=== PATIENT | male | born 1995 | race Two or more races ===

== ENCOUNTER 2017-04-19 17:39 | Emergency (ER) | payer OTHER ==
[2017-04-19] MEDS ORDERED: KETOROLAC TROMETHAMINE 60 MG/2 ML SDV IM ONE (18:31)
[2017-04-19] MEDS ORDERED: DIAZEPAM INJ 10 MG/2 ML DISP.SYRIN IM ONE (18:31)
--- NOTE | 2017-04-19 18:36 | ER Document Report ---
ED General - General Chief Complaint: Chest Pain Stated Complaint: NECK STIFFNESS,BACK AND CHEST PAIN Time Seen by Provider: 04/19/17 18:27 Mode of Arrival: Ambulatory Information source: Patient Notes: 21-year-old male presents with complaints of muscle tightness in the thoracic region. Patient notes stiff and is unable to turn his neck he is having pain and numbness down his left arm as well. Patient denies any trauma denies any actual chest pain notes it is all in the muscle of his back TRAVEL OUTSIDE OF THE [place] IN LAST 30 DAYS: No - HPI Onset: Just prior to arrival Onset/Duration: Sudden Quality of pain: Sharp Severity: Moderate Pain Level: 2 Associated symptoms: Body/muscle aches Exacerbated by: Movement Relieved by: Denies Similar symptoms previously: No Recently seen / treated by doctor: No - Related Data Allergies/Adverse Reactions: No Known Allergies Allergy (Unverified 04/19/17 17:43) Past Medical History - Social History Smoking Status: Never Smoker Cigarette use (# per day): No Chew tobacco use (# tins/day): No Smoking Education Provided: No Frequency of alcohol use: None Drug Abuse: None Family History: Reviewed & Not Pertinent Renal/ Medical History: Denies: Hx Peritoneal Dialysis Past Surgical History: Reports: Hx Appendectomy Review of Systems - Review of Systems Notes: REVIEW OF SYSTEMS: CONSTITUTIONAL : Denies fever, chills, or sweats. Denies recent illness. EENT: Denies eye, ear, throat, or mouth pain or symptoms. Denies nasal or sinus congestion or discharge. Denies throat, tongue, or mouth swelling or difficulty swallowing. CARDIOVASCULAR: Denies chest pain. Denies palpitations or racing or irregular heart beat. Denies ankle edema. RESPIRATORY: Denies cough, cold, or chest congestion. Denies shortness of breath, difficulty breathing, or wheezing. GASTROINTESTINAL: Denies abdominal pain or distention. Denies nausea, vomiting , or diarrhea. Denies blood in vomitus, stools, or per rectum. Denies black, tarry stools. Denies constipation. GENITOURINARY: Denies difficulty urinating, painful urination, burning, frequency, blood in urine, or discharge. MUSCULOSKELETAL: admits to muscle stiffness HEMATOLOGIC : Denies easy bruising or bleeding. LYMPHATIC: Denies swollen, enlarged glands. NEUROLOGICAL: Denies confusion or altered mental status. Denies passing out or loss of consciousness. Denies dizziness or lightheadedness. Denies headache. Denies weakness or paralysis or loss of use of either side. Denies problems with gait or speech. Denies sensory loss, numbness, or tingling. Denies seizures. PSYCHIATRIC: Denies anxiety or stress. Denies depression, suicidal ideation, or homicidal ideation. ALL OTHER SYSTEMS REVIEWED AND NEGATIVE. Dictation was performed using [employer] voice recognition software PHYSICAL EXAMINATION: GENERAL: Well-appearing, well-nourished and in no acute distress. HEAD: Atraumatic, normocephalic. EYES: Pupils equal round and reactive to light, extraocular movements intact, sclera anicteric, conjunctiva are normal. ENT: Nares patent, oropharynx clear without exudates. Moist mucous membranes. NECK: Normal range of motion, supple without lymphadenopathy LUNGS: Breath sounds clear to auscultation bilaterally and equal. No wheezes rales or rhonchi. HEART: Regular rate and rhythm without murmurs ABDOMEN: Soft, nontender, nondistended abdomen. No guarding, no rebound. No masses appreciated. Musculoskeletal: left thoracic T3-5 tenderness NEUROLOGICAL: Cranial nerves grossly intact. Normal speech, normal gait. Normal sensory, motor exams PSYCH: Normal mood, normal affect. SKIN: Warm, Dry, normal turgor, no rashes or lesions noted. Physical Exam - Vital signs Vitals: Temp Pulse Resp BP Pulse Ox 97.7 F 79 18 142/80 H 98 04/19/17 17:42 04/19/17 17:42 04/19/17 17:42 04/19/17 17:42 04/19/17 17:42 Course - Re-evaluation Re-evalutation: 04/19/17 19:15 Patient was treated with volume total otherwise looks quite well. Patient is in no distress symptoms have improved significantly After performing a Medical Screening Examination, I estimate there is LOW risk for INTRACRANIAL HEMORRHAGE, UNSTABLE SPINE FRACTURE, CENTRAL CORD SYNDROME, CAUDA EQUINA, THORACIC AORTIC DISSECTION, PNEUMOTHORAX, PERFORATED BOWEL, RUPTURED ABDOMINAL AORTIC ANEURYSM, ACUTE TENDON RUPTURE, COMPARTMENT SYNDROME, or OPEN FRACTURE, thus I consider the discharge disposition reasonable. Also, there is no evidence or peritonitis, sepsis, or toxicity. I have reevaluated this patient multiple times and no significant life threatening changes are noted. The patient and I have discussed the diagnosis and risks, and we agree with discharging home to follow-up with their primary doctor with the understanding that symptoms and presentations can change. We also discussed returning to the Emergency Department immediately if new or worsening symptoms occur. We have discussed the symptoms which are most concerning (e.g., bloody stool, fever, changing or worsening pain, vomiting) that necessitate immediate return. - Vital Signs Vital signs: Temp Pulse Resp BP Pulse Ox 97.7 F 79 18 142/80 H 98 04/19/17 17:42 04/19/17 17:42 04/19/17 17:42 04/19/17 17:42 04/19/17 17:42 04/19/17 18:42 Patient has obvious muscle tenderness Discharge - Discharge Clinical Impression: Acute muscle stiffness of neck Condition: Stable Disposition: HOME, SELF-CARE Instructions: Muscle Strain ([facility]) Additional Instructions: Follow up with your physician tomorrow for further care or return to the ED IMMEDIATELY if symptoms worsen or new concerns occur. If you cannot afford to follow up with your primary care physician a list of low cost clinics have been provided at the end of your discharge papers as well. Prescriptions: Diazepam [Valium 5 mg Tablet] 5 mg PO QIDP PRN #15 tablet PRN Reason: Ibuprofen 800 mg PO Q8 #30 tablet
[2017-04-19 19:23] VITALS: BP 140/80
--- NOTE | 2017-04-19 19:54 | EKG REPORT ---
SEVERITY:- BORDERLINE ECG - SINUS RHYTHM PROBABLE LEFT ATRIAL ABNORMALITY IRBBB : Confirmed by: John Shoemaker MD 19-Apr-2017 19:53:34
== END 2017-04-19 19:19 | disposition home or self-care (01) ==
LOC: ER 17:39
DX: M43.6 Torticollis (principal); R07.9 Chest pain, unspecified; M79.1 Myalgia
CPT/HCPCS: 93005; 99283; 96372; 93010; J3360; J1885

== ENCOUNTER 2017-09-29 12:58 | Emergency (ER) | payer OTHER ==
--- NOTE | 2017-09-29 15:03 | ER Document Report ---
HPI - HPI Patient complains to provider of: Ingrown toenail Onset: Other - 1 month Onset/Duration: Persistent Pain Level: 3 Context: 22-year-old male complaining of a left great toenail ingrown nail which he has had for a month. Associated Symptoms: None Exacerbated by: Movement Relieved by: Denies Similar symptoms previously: No Recently seen / treated by doctor: No - ROS ROS below otherwise negative: Yes Systems Reviewed and Negative: Yes All other systems reviewed and negative Past Medical History - General Information source: Patient - Social History Smoking Status: Unknown if Ever Smoked Frequency of alcohol use: None Drug Abuse: None Lives with: Family Family History: Reviewed & Not Pertinent - Medical History Medical History: Negative Renal/ Medical History: Denies: Hx Peritoneal Dialysis Past Surgical History: Reports: Hx Appendectomy Vertical Provider Document - CONSTITUTIONAL Agree With Documented VS: Yes Exam Limitations: No Limitations - INFECTION CONTROL TRAVEL OUTSIDE OF THE [place] IN LAST 30 DAYS: No - HEENT HEENT: Normocephalic - NECK Neck: Supple - RESPIRATORY O2 Sat by Pulse Oximetry: 98 - MUSCULOSKELETAL/EXTREMETIES Musculoskeletal/Extremeties: MAEW, FROM, Non-Tender - inflamed left great toenail with hypertrophic tissue over the tibial side of the nail - NEURO Level of Consciousness: Awake, Alert - DERM Integumentary: Warm, Dry. negative: Abscess Course - Vital Signs Vital signs: Temp Pulse Resp BP Pulse Ox 98.6 F 87 16 127/88 H 98 09/29/17 13:03 09/29/17 13:03 09/29/17 13:03 09/29/17 13:03 09/29/17 13:03 Discharge - Discharge Clinical Impression: Ingrown toenail Condition: Good Disposition: HOME, SELF-CARE Instructions: Cephalexin ([facility]), Ingrown Nail ([facility]) Additional Instructions: soak in warm soapy water daily gauze between toes to it doesn't rub vaseline gauze over the toe to er if increased pain, pain, fever see door maker for removal Prescriptions: Cephalexin Monohydrate [Keflex 500 mg Capsule] 500 mg PO QID #28 capsule Referrals: VARSHA TREVIZO DPM [ACTIVE STAFF] - Follow up as needed
[2017-09-29 15:49] VITALS: BP 137/77
== END 2017-09-29 15:48 | disposition home or self-care (01) ==
LOC: ER 12:58
DX: L60.0 Ingrowing nail (principal)
CPT/HCPCS: 99283

== ENCOUNTER 2017-11-13 20:32 | Emergency (ER) | payer OTHER ==
[2017-11-13 21:22] VITALS: BP 147/76
[2017-11-13 22:30] LABS: APPEARANCE,URINE CLEAR; BILIRUBIN,URINE NEGATIVE (NEGATIVE); COLOR,URINE YELLOW; GLUCOSE, URINE NEGATIVE (NEGATIVE); KETONES,URINE NEGATIVE (NEGATIVE); LEUKOCYTE ESTERASE,URINE NEGATIVE (NEGATIVE); NITRITE,URINE NEGATIVE (NEGATIVE); PROTEIN,URINE NEGATIVE (NEGATIVE); URINE SPECIFIC GRAVITY 1.026; UROBILINOGEN,URINE NEGATIVE mg/dL (<2.0)
[2017-11-13] MEDS ORDERED: IBUPROFEN 800 MG TABLET PO ONE (22:51)
--- NOTE | 2017-11-13 22:54 | ER Document Report ---
ED General - General Chief Complaint: Testicular Pain Stated Complaint: TESTICULAR PAIN Time Seen by Provider: 11/13/17 21:57 Mode of Arrival: Ambulatory Information source: Patient Notes: 22-year-old male presents with complaints of right testicular pain intermittently over the past few days. Patient notes pain initially started on Thursday was achy, after having intercourse his symptoms resolved on Thursday, he came back on Thursday again, he says intermittently over the past few days it comes and goes, yesterday he had no pain at all and then today it has been constant. Patient denies any difficulty urinating, no burning on urination no urinary frequency he denies any history of STDs TRAVEL OUTSIDE OF THE [place] IN LAST 30 DAYS: No - HPI Onset: Last week Onset/Duration: Intermittent Quality of pain: Achy Severity: Mild Pain Level: 1 Associated symptoms: Other Exacerbated by: Denies Relieved by: Other - ejaculation Similar symptoms previously: No Recently seen / treated by doctor: No - Related Data Allergies/Adverse Reactions: No Known Allergies Allergy (Verified 09/29/17 13:00) Past Medical History - Social History Smoking Status: Never Smoker Cigarette use (# per day): No Chew tobacco use (# tins/day): No Smoking Education Provided: No Frequency of alcohol use: Rare Drug Abuse: Marijuana Family History: Reviewed & Not Pertinent Patient has suicidal ideation: No Patient has homicidal ideation: No Renal/ Medical History: Denies: Hx Peritoneal Dialysis Past Surgical History: Reports: Hx Appendectomy Review of Systems - Review of Systems Notes: REVIEW OF SYSTEMS: CONSTITUTIONAL : Denies fever, chills, or sweats. Denies recent illness. EENT: Denies eye, ear, throat, or mouth pain or symptoms. Denies nasal or sinus congestion or discharge. Denies throat, tongue, or mouth swelling or difficulty swallowing. CARDIOVASCULAR: Denies chest pain. Denies palpitations or racing or irregular heart beat. Denies ankle edema. RESPIRATORY: Denies cough, cold, or chest congestion. Denies shortness of breath, difficulty breathing, or wheezing. GASTROINTESTINAL: Denies abdominal pain or distention. Denies nausea, vomiting , or diarrhea. Denies blood in vomitus, stools, or per rectum. Denies black, tarry stools. Denies constipation. GENITOURINARY: Admits to right testicular pain MUSCULOSKELETAL: Denies back or neck pain or stiffness. Denies joint pain or swelling. SKIN: Denies rash, lesions or sores. HEMATOLOGIC : Denies easy bruising or bleeding. LYMPHATIC: Denies swollen, enlarged glands. NEUROLOGICAL: Denies confusion or altered mental status. Denies passing out or loss of consciousness. Denies dizziness or lightheadedness. Denies headache. Denies weakness or paralysis or loss of use of either side. Denies problems with gait or speech. Denies sensory loss, numbness, or tingling. Denies seizures. PSYCHIATRIC: Denies anxiety or stress. Denies depression, suicidal ideation, or homicidal ideation. ALL OTHER SYSTEMS REVIEWED AND NEGATIVE. Dictation was performed using [employer] voice recognition software PHYSICAL EXAMINATION: GENERAL: Well-appearing, well-nourished and in no acute distress. HEAD: Atraumatic, normocephalic. EYES: Pupils equal round and reactive to light, extraocular movements intact, sclera anicteric, conjunctiva are normal. ENT: Nares patent, oropharynx clear without exudates. Moist mucous membranes. NECK: Normal range of motion, supple without lymphadenopathy LUNGS: Breath sounds clear to auscultation bilaterally and equal. No wheezes rales or rhonchi. HEART: Regular rate and rhythm without murmurs ABDOMEN: Soft, nontender, nondistended abdomen. No guarding, no rebound. No masses appreciated. Positive right cremaster reflex Musculoskeletal: Normal range of motion, no pitting or edema. No cyanosis. NEUROLOGICAL: Cranial nerves grossly intact. Normal speech, normal gait. Normal sensory, motor exams PSYCH: Normal mood, normal affect. SKIN: Warm, Dry, normal turgor, no rashes or lesions noted. Physical Exam - Vital signs Vitals: Temp Pulse Resp BP Pulse Ox 97.8 F 68 14 147/76 H 99 11/13/17 21:22 11/13/17 21:22 11/13/17 21:22 11/13/17 21:22 11/13/17 21:22 Course - Re-evaluation Re-evalutation: 11/13/17 22:53 I have low suspicion for testicular torsion given that symptoms are constant at this time yet his scrotum is not swollen is not erythematous and is only having mild tenderness 11/14/17 00:13 Patient's ultrasound noted no significant abnormality, patient is pain-free at this time, I will have him follow-up with the urologist for further evaluation and care as I do not have a specific finding that would explain his pain, there is noted occurred when he was standing so I wonder if this is more a mechanical injury After performing a Medical Screening Examination, I estimate there is LOW risk for ACUTE APPENDICITIS, BOWEL OBSTRUCTION, ACUTE CHOLECYSTITIS, PERFORATED DIVERTICULITIS, INCARCERATED HERNIA, PANCREATITIS, TESTICULAR TORSION or PERFORATED ULCER, thus I consider the discharge disposition reasonable. Also, there is no evidence or peritonitis, sepsis, or toxicity. I have reevaluated this patient multiple times and no significant life threatening changes are noted. The patient and I have discussed the diagnosis and risks, and we agree with discharging home with close follow-up with the understanding that symptoms and presentations can change. We also discussed returning to the Emergency Department immediately if new or worsening symptoms occur. We have discussed the symptoms which are most concerning (e.g., bloody stool, fever, changing or worsening pain, intractable vomiting - standard verbal up date) that necessitate immediate return. - Vital Signs Vital signs: Temp Pulse Resp BP Pulse Ox 97.8 F 68 14 147/76 H 99 11/13/17 21:22 11/13/17 21:22 11/13/17 21:22 11/13/17 21:22 11/13/17 21:22 - Diagnostic Test Radiology reviewed: Image reviewed - Ultrasound scrotum notes no significant abnormality, Reports reviewed Discharge - Discharge Clinical Impression: Testicular pain, right Condition: Stable Disposition: HOME, SELF-CARE Instructions: Testicular Pain ([facility]) Prescriptions: Hydrocodone/Acetaminophen [[place] 5-325 mg Tablet] 1 tab PO Q6 #10 tablet Referrals: CALVIN ESPAÑA DO [JOHN HARO] - Follow up tomorrow
--- NOTE | 2017-11-13 23:57 | RADIOLOGY REPORT (SQ) ---
EXAM DESCRIPTION: U/S SCROTUM W/DOPPLER COMPLETED DATE/TIME: 11/13/2017 11:33 pm REASON FOR STUDY: rightscrotal pain COMPARISON: None. TECHNIQUE: Static and realtime cheatham scale imaging of the scrotum and testes. Selected color Doppler and spectral images recorded to document blood flow. LIMITATIONS: None. FINDINGS: RIGHT: TESTICLE: Normal size. Normal echotexture. Normal blood flow. No mass. EPIDIDYMIS: Normal. HYDROCELE OR VARICOCELE: No. HERNIA OR EXTRA-TESTICULAR MASS: No. OTHER: No other significant finding. LEFT: TESTICLE: Normal size. Normal echotexture. Normal blood flow. No mass. EPIDIDYMIS: Normal. HYDROCELE OR VARICOCELE: No. HERNIA OR EXTRA-TESTICULAR MASS: No. OTHER: No other significant finding. IMPRESSION: NO EVIDENCE OF TESTICULAR MASS OR TORSION. TECHNICAL DOCUMENTATION: JOB ID: [id number] [place]-72 2010 [employer]- All Rights Reserved Reading location - IP/workstation name: [email or web address]
[2017-11-14 00:05] LABS: CHLAM PCR NOT DETECTED (NOT DETECT); GON PCR NOT DETECTED (NOT DETECT)
== END 2017-11-14 00:35 | disposition home or self-care (01) ==
LOC: ER 20:32
DX: N50.811 Right testicular pain (principal)
CPT/HCPCS: 76870; 81001; 87491; 87591; 93976; 99284

== ENCOUNTER 2020-06-11 17:57 | Emergency (ER) | payer OTHER ==
[2020-06-11] MEDS ORDERED: ACETAMINOPHEN 325 MG TABLET PO ONE (19:35)
--- NOTE | 2020-06-11 19:35 | ER Document Report ---
ED Medical Screen (RME) - General Chief Complaint: Back Pain Stated Complaint: BACK PAIN Time Seen by Provider: 06/11/20 19:32 Mode of Arrival: Wheelchair Information source: Patient Notes: 24-year-old male presented to ED for complaint of low back pain. He states he does have a history of low back pain. He states he was going from hot to another today when the back tightened up. He states he goes to a chiropractor for his back. He states it did not help today. He states he cannot walk that he fell down earlier. Saddle anesthesia, no loss of control of bowel bladder, he states he did lose control of his legs earlier. He states he did go to the chiropractor this afternoon did not get any better. He states he has not been able to walk for the last couple hours. He states he took 800 mg at 430. States not having Tylenol so we will give him a dose of Tylenol we will get some blood urine and have him seen by one of the provider since he states he cannot walk. When he went to the chiropractor they did not do an x-ray. Pain lever 5/5 I have greeted and performed a rapid initial assessment of this patient. A comprehensive ED assessment and evaluation of the patient, analysis of test results and completion of medical decision making process will be conducted by an additional ED providers. TRAVEL OUTSIDE OF THE [place] IN LAST 30 DAYS: No - Related Data Allergies/Adverse Reactions: No Known Allergies Allergy (Verified 09/29/17 13:00) Past Medical History Renal/ Medical History: Denies: Hx Peritoneal Dialysis Past Surgical History: Reports: Hx Appendectomy Physical Exam - Vital signs Vitals: Temp Pulse Resp BP Pulse Ox 98.6 F 98 18 141/83 H 99 06/11/20 18:19 06/11/20 18:19 06/11/20 18:19 06/11/20 18:19 06/11/20 18:19 Course - Vital Signs Vital signs: Temp Pulse Resp BP Pulse Ox 98.6 F 98 18 141/83 H 99 06/11/20 18:19 06/11/20 18:19 06/11/20 18:19 06/11/20 18:19 06/11/20 18:19
--- NOTE | 2020-06-11 20:32 | RADIOLOGY REPORT (SQ) ---
EXAM DESCRIPTION: L SPINE WHOLE [facility]: XR LUMBAR SPINE ANTEROPOSTERIOR, LATERAL, AND OBLIQUES Views: 4 CLINICAL HISTORY: 24 years Male; Increase in chronic low back pain; COMPARISON: 06/11/2020 FINDINGS: Alignment is normal. No subluxation or significant loss of intervertebral disc height or vertebral body height. No evidence for acute fracture. No focal bone lesions. IMPRESSION: 1. Normal lumbar spine.
[2020-06-11 20:33] LABS: APPEARANCE,URINE CLEAR; BILIRUBIN,URINE NEGATIVE (NEGATIVE); COLOR,URINE YELLOW; GLUCOSE, URINE NEGATIVE (NEGATIVE); KETONES,URINE NEGATIVE (NEGATIVE); LEUKOCYTE ESTERASE,URINE NEGATIVE (NEGATIVE); NITRITE,URINE NEGATIVE (NEGATIVE); PROTEIN,URINE 30 mg/dL (NEGATIVE); URINE SPECIFIC GRAVITY 1.031; UROBILINOGEN,URINE NEGATIVE mg/dL (<2.0)
[2020-06-11 20:34] LABS: ABSOLUTE LYMPHOCYTES (AUTO) 1.5 10^3/uL (0.5-4.7); ABSOLUTE MONOCYTES (AUTO) 0.6 10^3/uL (0.1-1.4); ABSOLUTE NEUT (AUTO) 3.7 10^3/uL (1.7-8.2); BASOPHILS % (AUTO) 0.3 % (0-2); EOSINOPHILS % (AUTO) 0.1 % (0-6); HEMATOCRIT 40.9 % (37.9-51.0); HEMOGLOBIN 13.9 g/dL (13.5-17.0); LYMPHOCYTES % (AUTO) 25.2 % (13-45); MEAN CORPUSCULAR HEMOGLOBIN 27.3 pg (27.0-33.4); MEAN CORPUSCULAR VOLUME 80 fl (80-97); MONOCYTES % (AUTO) 10.4 % (3-13); PLATELET COUNT 322 10^3/uL (150-450); RED CELL DISTRIBUTION WIDTH 13.5 % (11.5-14.0); TOTAL CELLS COUNTED % (AUTO) 100 %; WHITE BLOOD COUNT 5.8 10^3/uL (4.0-10.5)
[2020-06-12] MEDS ORDERED: KETOROLAC TROMETHAMINE 60 MG/2 ML SDV IM ONE (03:12)
[2020-06-12] MEDS ORDERED: CYCLOBENZAPRINE HCL 10 MG TABLET PO ONE (03:12)
--- NOTE | 2020-06-12 03:12 | ER Document Report ---
ED Neck/Back Problem - General Chief Complaint: Low Back Pain Stated Complaint: BACK PAIN Time Seen by Provider: 06/11/20 19:32 Mode of Arrival: Wheelchair TRAVEL OUTSIDE OF THE [place] IN LAST 30 DAYS: No - HPI Notes: Patient is a 24-year-old male with a past medical history of back pain who presents with back pain. He states that he has had pain for several months. He does not recall any trauma or injury. Patient states that he goes to the chiropractor. He states that today he was driving a lower and smaller car and thinks that is why his back pain began. Patient went to the chiropractor today and had a treatment but the symptoms did not improve. He denies any fevers. No numbness or tingling. No loss of bowel or bladder. He states he has not taken anything for the pain. Patient does not use IV drugs. Has not seen a family doctor for this pain that he states began several months ago. It is worse with moving and walking. Pain is better with laying on his back. - Related Data Allergies/Adverse Reactions: No Known Allergies Allergy (Verified 06/11/20 19:35) Past Medical History - General Information source: Patient - Social History Smoking Status: Former Smoker Frequency of alcohol use: None Drug Abuse: None Family History: Reviewed & Not Pertinent Renal/ Medical History: Denies: Hx Peritoneal Dialysis Past Surgical History: Reports: Hx Appendectomy Review of Systems - Review of Systems Notes: CONSTITUTIONAL: No fever, fatigue or weight loss. SKIN: No rash. HENT: No congestion, ear pain, or sore throat. EYES: No recent vision problems or eye pain. ENDOCRINE: No thyroid problems. No polyuria or polydipsia. CARDIOVASCULAR: No chest pain or edema. RESPIRATORY: No cough, shortness of breath, congestion, or wheezing. GASTROINTESTINAL: No abdominal pain, nausea, vomiting, bloody stools or diarrhea. GENITOURINARY: No dysuria. MUSCULOSKELETAL: Positive for back pain. LYMPHATIC: No swollen glands. NEUROLOGIC: No seizures. No headache, focal weakness or sensory changes. HEMATOLOGIC: No unusual bruising or bleeding. PSYCHIATRIC: No depression or anxiety. Physical Exam - Vital signs Vitals: Temp Pulse Resp BP Pulse Ox 98.6 F 98 18 141/83 H 99 06/11/20 18:19 06/11/20 18:19 06/11/20 18:19 06/11/20 18:19 06/11/20 18:19 - Notes Notes: VITAL SIGNS: Within normal limits. GENERAL: No acute distress, non-toxic appearance. Uncomfortable due to pain. HEAD: Normal with no signs of head trauma. EYES: EOMI, conjunctiva normal, no discharge. EARS: Hearing grossly intact. NOSE: Normal. NECK: Normal range of motion, no tenderness, supple, no lymphadenopathy, No adenopathy, no JVD. CHEST: Clear breath sounds bilaterally. No wheezes, rales, or rhonchi. CARDIAC: Regular rate and rhythm. S1 and S2, without murmurs, gallops, or rubs. VASCULAR: No Edema. Peripheral pulses normal and equal in all extremities. ABDOMEN: Normal and soft with no tenderness, no masses or pulsatile masses. GENITOURINARY: Normal, no tenderness MUSCULOSKELETAL: Discomfort to palpation of lumbar paraspinal muscles bilaterally. Ambulatory. Discomfort to bilateral straight leg raise. Strong dorsalis pedis pulses. Sensation intact. NEUROLOGICAL: Alert and oriented x 3. No focal sensory or strength deficits. Speech normal. Follows commands appropriately. PSYCHIATRIC: Normal Affect, judgement and mood. SKIN: Normal appearance with no rashes or lesions. Course - Re-evaluation Re-evalutation: 06/12/20 05:41 Patient's work-up is reassuring. He likely has an exacerbation of his chronic back pain. He was able to ambulate in the room. He is denying any numbness or loss of bowel or bladder. He is not an IV drug user. Patient was given Toradol and Flexeril. He was instructed not to drive when taking the Flexeril. His is taking him home today. Patient was told to follow-up with his family doctor. [place] He was told to resume normal activity as tolerated and avoid bedrest. Patient was told he can use warm or cool compresses on the back pain. He was given strict return precautions and symptoms to watch out for. Him and his verbalized understanding. - Vital Signs Vital signs: Temp Pulse Resp BP Pulse Ox 98 F 83 14 135/81 H 100 06/12/20 03:34 06/12/20 03:34 06/12/20 03:34 06/12/20 03:34 11/17/20 03:34 - Laboratory Result Diagrams: 06/11/20 20:10 Laboratory results interpreted by me: 06/11/20 20:10 Urine Protein 30 H - Diagnostic Test Radiology reviewed: Image reviewed, Reports reviewed Discharge - Discharge Clinical Impression: Low back pain Qualifiers: Chronicity: chronic Back pain laterality: bilateral Sciatica presence: without sciatica Qualified Code(s): M54.5 - Low back pain Condition: Stable Disposition: HOME, SELF-CARE Instructions: Low Back Pain ([facility]) Additional Instructions: Your work-up today is reassuring. You may take Tylenol and ibuprofen for pain. Please follow-up with the family doctor. You will be discharged with muscle relaxers. Please do not drive while taking this medicine. Please return to the ER for any loss of bowel or bladder, fevers, worsening pain, numbness, tingling. Prescriptions: Cyclobenzaprine HCl [Flexeril 10 mg Tablet] 10 mg PO TID PRN 5 Days #15 tablet PRN Reason:
[2020-06-12 03:37] VITALS: BP 135/81
== END 2020-06-12 03:34 | disposition home or self-care (01) ==
LOC: ER 17:57
DX: M54.5 Low back pain (principal); G89.29 Other chronic pain; Z87.891 Personal history of nicotine dependence
CPT/HCPCS: 99284; 96372; 36415; 85025; 81001; 72110; J1885